=== PATIENT | male | born 1980 | race Caucasian/White ===

== ENCOUNTER 2018-12-30 14:14 | Emergency (ER) | payer OTHER ==
[~2018-12-30] VITALS: Ht 180.3 cm; Wt 0.5 kg
[2018-12-30] MEDS ORDERED: ZIAC 10/6.25 MG1 TAB (14:18)
[2018-12-30] MEDS ORDERED: GLIMEPIRIDE4 MG (14:18)
[2018-12-30] MEDS ORDERED: METFORMIN HCL1000 MG (14:18)
[2018-12-30] MEDS ORDERED: LEVAQUIN750 MG PO (17:45)
[2018-12-30] MEDS ORDERED: KETO10TA2 PO (17:47)
== END 2018-12-30 18:04 | disposition home or self-care (01) ==
LOC: ER 14:14
DX: S61.223A Laceration with foreign body of left middle finger without damage to nail, initial encounter (principal); W26.0XXA Contact with knife, initial encounter; Y93.89 Activity, other specified; Y92.89 Other specified places as the place of occurrence of the external cause; Y99.8 Other external cause status